=== PATIENT | female | born 1950 ===

== ENCOUNTER 2022-04-18 16:04 | Inpatient (IN) | payer MEDICARE, MEDICAID ==
[2022-04-19] MEDS ORDERED: MAGNESIUM HYDROXIDE 2,400 MG/10 ML CUP PO PRN (13:26)
[2022-04-19] MEDS ORDERED: HALOPERIDOL LACTATE 5 MG/ML 1 ML VIAL IM PRN (13:26)
[2022-04-19] MEDS ORDERED: ACETAMINOPHEN TAB 325 MG TAB PO PRN (13:26)
[2022-04-19] MEDS ORDERED: MAG HYDROX/AL HYDROX/SIMETH 30 ML CUP PO PRN (13:26)
[2022-04-19] MEDS ORDERED: LORazepam 1 MG/0.5 ML VIAL IM PRN (13:32)
[2022-04-19] MEDS ORDERED: haloperidoL 5 MG TAB PO PRN (13:33)
[2022-04-19] MEDS ORDERED: INSULIN ASPART (NovoLOG) 100 UNIT/ML VIAL SQ SCH (17:30)
[2022-04-19] MEDS: INSULIN ASPART (NovoLOG) 100 UNIT/ML VIAL SQ SCH ×2 (23:12→23:13)
[2022-04-19] MEDS: traZODone HCL 50 MG TAB PO SCH (23:13)
[2022-04-19] MEDS: COLCHICINE 0.6 MG EACH PO SCH (23:13)
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
[2022-04-20 07:58] LABS: Glucose,Whole Blood 133 mg/dL (70-110)
[2022-04-20] MEDS: INSULIN ASPART (NovoLOG) 100 UNIT/ML VIAL SQ SCH ×4 (07:59→20:17)
[2022-04-20] MEDS: COLCHICINE 0.6 MG EACH PO SCH ×2 (09:01→20:15)
[2022-04-20] MEDS: LOSARTAN-HCTZ 50-12.5 MG 1 EACH TAB PO SCH (09:01)
[2022-04-20] MEDS: NICOTINE 14MG/24HR PATCH TRANSDERM SCH (09:02)
[2022-04-20] MEDS ORDERED: FLUoxetine HCL 10 MG CAP PO STA (11:01)
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
[2022-04-20 12:53] LABS: Glucose,Whole Blood 128 mg/dL (70-110)
[2022-04-20 17:44] LABS: Glucose,Whole Blood 258 mg/dL (70-110)
[2022-04-20 19:29] LABS: Chol/HDL Ratio 3.11 Ratio; LDL Cholesterol,Calculated 114.9 mg/dL (0.0-131.0)
[2022-04-20 20:15] LABS: Glucose,Whole Blood 196 mg/dL (70-110)
[2022-04-20] MEDS: traZODone HCL 50 MG TAB PO SCH (20:15)
[2022-04-21] MEDS: INSULIN ASPART (NovoLOG) 100 UNIT/ML VIAL SQ SCH ×4 (08:30→19:59)
[2022-04-21 08:31] LABS: Glucose,Whole Blood 148 mg/dL (70-110)
[2022-04-21] MEDS: LOSARTAN-HCTZ 50-12.5 MG 1 EACH TAB PO SCH (08:31)
[2022-04-21] MEDS: NICOTINE 14MG/24HR PATCH TRANSDERM SCH (08:31)
[2022-04-21] MEDS: FLUoxetine HCL 10 MG CAP PO SCH (08:31)
[2022-04-21] MEDS: COLCHICINE 0.6 MG EACH PO SCH ×2 (08:31→19:59)
[2022-04-21 12:49] LABS: Glucose,Whole Blood 113 mg/dL (70-110)
--- NOTE | 2022-04-21 13:06 | P.PN ---
Progress Note - Text Progress Note Date: 04/21/22 Interval History: Patient was seen wandering the hallways and was directable and agreeable to speak with job specification writer in the office. Currently, the patient is not reporting any suicidal or homicidal ideation, intention, and/or plan. She is not reporting any auditory or visual hallucinations. She denies any paranoia or delusions. The patient is excessive she is uncertain as to where she will be living. She states that she is not welcome to her daughter's home. As per history, the patient did abandon her children and was only reunited with them when they were older. She reports no issues regarding her sleep or her appetite. Mental Status Exam: General Appearance: Patient appears to be stated age is alert, directable, and cooperative. Behavior: Patient is calmly seated without any agitated behavior. Speech: Patient's speech is fluent and nonpressured. Mood/Affect: Mood is improving mildly, affect is congruent and constricted. Suicidality/Homicidality: Patient denies having any suicidal or homicidal ideation intent or plan. Perceptions: Patient denies any visual hallucinations and denies any auditory hallucinations Though content/process: There is no evidence of any delusional thought content and thought process is linear and goal-directed. Memory and concentration: AOX3, grossly intact for the purposes of this session Judgment and insight: Improving mildly Vital Signs Temp 97.8 F 04/21/22 07:19 Pulse 73 04/21/22 07:19 Resp 17 04/21/22 07:19 BP 107/56 04/21/22 07:19 Pulse Ox 97 04/21/22 07:19 FiO2 Laboratory Results - Last 24 Hours 04/20/22 04/20/22 04/20/22 10:23 10:23 17:40 POC Glucose (mg/dL) 258 H POC Glu Java Integration Developer ID Stephanie Oliveira [address] Glu mg/dL 140 Hemoglobin A1c 6.5 H Triglycerides 114.00 Cholesterol 203.00 H LDL Cholesterol, Calc 114.9 VLDL Cholesterol, Calc 22.80 HDL Cholesterol 65.30 H Cholesterol/HDL Ratio 3.11 04/20/22 04/21/22 04/21/22 20:14 08:29 12:46 POC Glucose (mg/dL) 196 H 148 H 113 H POC Glu Java Integration Developer ID Young, Aurora DesiMargo benavidez Melissa [address] Glu mg/dL Hemoglobin A1c Triglycerides Cholesterol LDL Cholesterol, Calc VLDL Cholesterol, Calc HDL Cholesterol Cholesterol/HDL Ratio Assessment Major depressive disorder Posttraumatic stress disorder Plan: -Patient continues to meet criteria for inpatient psychiatric admission for symptom stabilization and safety. Patient has signed adult voluntary form and medication consent and was placed in patient's chart. -Medications: Continue Prozac 10 mg by mouth daily for depression/anxiety/PTSD -When necessary Ativan and Haldol for agitation/aggression. -SW on board for discharge planning. Encouraged the patient to participate in milieu.
[2022-04-21 17:44] LABS: Glucose,Whole Blood 122 mg/dL (70-110)
[2022-04-21 19:59] LABS: Glucose,Whole Blood 218 mg/dL (70-110)
[2022-04-21] MEDS: traZODone HCL 50 MG TAB PO SCH (19:59)
[2022-04-22 08:09] LABS: Glucose,Whole Blood 138 mg/dL (70-110)
[2022-04-22] MEDS: INSULIN ASPART (NovoLOG) 100 UNIT/ML VIAL SQ SCH ×4 (08:12→20:29)
[2022-04-22] MEDS: LOSARTAN-HCTZ 50-12.5 MG 1 EACH TAB PO SCH (08:55)
[2022-04-22] MEDS: FLUoxetine HCL 10 MG CAP PO SCH (08:55)
[2022-04-22] MEDS: NICOTINE 14MG/24HR PATCH TRANSDERM SCH (08:55)
[2022-04-22] MEDS: COLCHICINE 0.6 MG EACH PO SCH ×2 (08:55→20:30)
[2022-04-22 08:57] VITALS: RESP 16
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
[2022-04-22 13:11] LABS: Glucose,Whole Blood 183 mg/dL (70-110)
[2022-04-22 17:54] LABS: Glucose,Whole Blood 235 mg/dL (70-110)
[2022-04-22 20:00] LABS: Glucose,Whole Blood 206 mg/dL (70-110)
[2022-04-22] MEDS: traZODone HCL 50 MG TAB PO SCH (20:30)
[2022-04-23 07:42] LABS: Glucose,Whole Blood 146 mg/dL (70-110)
[2022-04-23] MEDS: INSULIN ASPART (NovoLOG) 100 UNIT/ML VIAL SQ SCH ×4 (07:47→20:40)
--- NOTE | 2022-04-23 08:34 | P.PN ---
Progress Note - Text Progress Note Date: 04/23/22 Interval History: Patient was seen wandering the hallways and was directable and agreeable to speak with sign writer hand in the office. Currently, the patient reports no significant psychiatric issues or concerns. She is denying any suicidal or homicidal ideation, intention, and/or plan. She is denying any auditory or visual hallucinations. She reports no paranoia or other delusions. She reports that her daughter does not want her home and that her other daughter will be driving up from [facility] in regards to pick her up on Wednesday. She expresses no medical issues or concerns at this time. She has been calm and appropriate in the milieu. Mental Status Exam: General Appearance: Patient appears to be stated age is alert, directable, and cooperative. Behavior: Patient is calmly seated without any agitated behavior. Speech: Patient's speech is fluent and nonpressured. Mood/Affect: Mood is improving mildly, affect is congruent and constricted. Suicidality/Homicidality: Patient denies having any suicidal or homicidal ideation intent or plan. Perceptions: Patient denies any visual hallucinations and denies any auditory hallucinations Though content/process: There is no evidence of any delusional thought content and thought process is linear and goal-directed. Memory and concentration: AOX3, grossly intact for the purposes of this session Judgment and insight: Improving mildly Vital Signs Temp 97.5 F L 04/22/22 07:00 Pulse 123 H 04/22/22 07:00 Resp 16 04/22/22 07:00 BP 115/60 04/22/22 07:00 Pulse Ox 98 04/22/22 07:00 FiO2 Laboratory Results - Last 24 Hours 04/22/22 04/22/22 04/22/22 13:09 17:52 19:58 POC Glucose (mg/dL) 183 H 235 H 206 H POC Glu Lpc ID Sydnie Gaspar Dawn Hopkins, Jessica 04/23/22 07:33 POC Glucose (mg/dL) 146 H POC Glu Lpc ID Dagmar Gayle Assessment Major depressive disorder Posttraumatic stress disorder Plan: -Patient continues to meet criteria for inpatient psychiatric admission for symptom stabilization and safety. Patient has signed adult voluntary form and medication consent and was placed in patient's chart. -Anticipate discharge on Wednesday as her [place]. Her current home is refusing to take her back in this patient is vulnerable due to advanced years. -Medications: Prozac 10 mg by mouth daily for depression/anxiety/PTSD -When necessary Ativan and Haldol for agitation/aggression. -NRT - nicotine patch -SW on board for discharge planning. Encouraged the patient to participate in milieu.
[2022-04-23] MEDS: NICOTINE 14MG/24HR PATCH TRANSDERM SCH (09:07)
[2022-04-23] MEDS: COLCHICINE 0.6 MG EACH PO SCH ×2 (09:08→20:36)
[2022-04-23] MEDS: LOSARTAN-HCTZ 50-12.5 MG 1 EACH TAB PO SCH (09:08)
[2022-04-23] MEDS: FLUoxetine HCL 10 MG CAP PO SCH (09:08)
[2022-04-23 12:35] LABS: Glucose,Whole Blood 100 mg/dL (70-110)
[2022-04-23 17:58] LABS: Glucose,Whole Blood 116 mg/dL (70-110)
[2022-04-23] MEDS: traZODone HCL 50 MG TAB PO SCH (20:11)
[2022-04-23 20:41] LABS: Glucose,Whole Blood 219 mg/dL (70-110)
[2022-04-24 07:00] VITALS: BP 113/70; PULSE 69; TEMP 97.3
[2022-04-24] MEDS: COLCHICINE 0.6 MG EACH PO SCH (08:12)
[2022-04-24] MEDS: FLUoxetine HCL 10 MG CAP PO SCH (08:12)
[2022-04-24] MEDS: LOSARTAN-HCTZ 50-12.5 MG 1 EACH TAB PO SCH (08:12)
[2022-04-24] MEDS: NICOTINE 14MG/24HR PATCH TRANSDERM SCH (08:13)
[2022-04-24] MEDS: INSULIN ASPART (NovoLOG) 100 UNIT/ML VIAL SQ SCH ×2 (08:15→14:08)
[2022-04-24 08:16] LABS: Glucose,Whole Blood 147 mg/dL (70-110)
[2022-04-24 12:39] LABS: Glucose,Whole Blood 136 mg/dL (70-110)
--- NOTE | 2022-04-25 09:20 | DS ---
DATE OF SERVICE: 04/24/2022 DISCHARGE SUMMARY ADMISSION AND DISCHARGE DIAGNOSES: 1. Major depressive disorder. 2. Posttraumatic stress disorder. 3. Diabetes mellitus. 4. Hypertension. HISTORY OF PRESENTING ILLNESS: The patient is a 71-year-old female, who presented with auditory hallucinations and homicidal ideation towards her daughter. She had been having daily crying spells, excessive feelings of guilt. She described voices in her head telling her to hurt others. She has had a past diagnosis of bipolar disorder. She was not reporting any manic or hypomanic symptoms presently. She noted symptoms of PTSD. She had has had past psychiatric hospitalizations. There were no substance use issues reported. She was admitted for further evaluation. PAST MEDICAL HISTORY: As per medical consultation. MENTAL STATUS EXAMINATION: The patient had normal psychomotor activity. Speech was fluent and non- pressured. Mood was depressed. Affect constricted. She was tearful. She was not reporting any thoughts of harm to self or others. She was not indicating symptoms of thought disorder. She was oriented and alert. COURSE OF HOSPITALIZATION: The patient was admitted for comprehensive medical psychiatric and psychosocial evaluation. We will engage the patient in individual and group therapeutic activities. On admission, the patient was started on Prozac 10 mg a day. There were plans for the patient to be discharged on the . I refer the reader to Dr. Swann's discharge summary of 04/22/2022 for details. The plan included for the patient to continue on Prozac 10 mg a day. There were issues with housing as she was not going to be able to go back to live with her daughter. Discharge was deferred until further arrangements were made including her moving to a different living situation. The patient was in agreement with discharge plans. CONDITION AT DISCHARGE: The patient was stable. Her mood was improved. She was not voicing any thoughts of harm to self or others. She tolerated her psychotropic medications. RECOMMENDATIONS AND FOLLOWUP: Discharge psychotropic medications include: 1. Prozac 10 mg a day. 2. Trazodone 50 mg a day. She has followup through [facility] on 04/28/2022 at 10:40 a.m. MICHAEL / CHON: [id number] / [facility] SYSTEMDavida
== END 2022-04-24 16:30 | disposition home or self-care (01) | DRG 881 ==
LOC: 3MHU 04-19 21:28
PROVIDERS: ADMIT Psychiatry & Neurology Psychiatry; ATTEND Psychiatry & Neurology Psychiatry
DX: F32.A Depression, unspecified (principal); R45.851 Suicidal ideations; E11.9 Type 2 diabetes mellitus without complications; F32.9 Major depressive disorder, single episode, unspecified; F43.10 Post-traumatic stress disorder, unspecified; G47.00 Insomnia, unspecified; I10 Essential (primary) hypertension; R45.850 Homicidal ideations; Z79.899 Other long term (current) drug therapy; Z91.410 Personal history of adult physical and sexual abuse; Z88.0 Allergy status to penicillin
CPT/HCPCS: 80061; 83036; 84443